=== PATIENT | female | born 1950 | race Caucasian/White ===

== ENCOUNTER 2021-05-21 03:14 | Emergency (ER) | payer MEDICARE ==
[~2021-05-21] VITALS: Ht 152.4 cm; Wt 35.1 kg
--- NOTE | 2021-05-21 03:29 | PHYS DOC ---
Adult General HPI HPI Patient is a 71-year-old female with a past medical history significant for lung cancer, and COPD on immunotherapy who presents to the emergency department with a chief complaint of shortness of breath that started acutely at about 10 PM last night. States she has had bouts with shortness of breath over the last yea r but it got really bad last night. States she is doing immunotherapy at [facility]. Denies any recent travel, traumas, illnesses, fevers, abdominal pain, nausea, vomiting, diarrhea, dysuria, hematuria, blood in the stool. Review of Systems Review of Systems Review of systems otherwise unremarkable except noted in HPI Physical Exam Physical Exam Constitutional: Well developed, well nourished, appears ill, in acute respiratory distress HENT: Normocephalic, atraumatic, bilateral external ears normal, oropharynx mois t, no oral exudates, nose normal. [] Eyes: conjunctiva normal, no discharge. [] Neck: Normal range of motion, no tenderness, supple, no stridor. [] Cardiovascular: Sinus tachycardia Lungs & Thorax: Bilateral breath sounds with global scattered rhonchi, increased work of breathing, tachypnea, hypoxia on room air Abdomen: soft, no tenderness, no masses, no pulsatile masses. [] Skin: Warm, dry, no erythema, no rash. [] Extremities: No tenderness, ROM intact, no edema. [] Neurologic: Alert and oriented X 3, no focal deficits noted. [] Psychologic: Affect normal, mood normal. [] EKG EKG EKG with a rate of 133, irregular rhythm, QRS of 74, QTc of 445, no STEMI [] Radiology/Procedures Radiology/Procedures [] Heart Score C/O Chest Pain: No Risk Factors: Risk Factors: DM, Current or recent (<one month) smoker, HTN, HLP, family hi story of CAD, obesity. Risk Scores: Risk Factors: DM, Current or recent (<one month) smoker, HTN, HLP, family history of CAD, obesity. Course & Med Decision Making Course & Med Decision Making Patient is a 71-year-old female who presents with acute onset shortness of breath and respiratory distress Vital signs notable for tachycardia, tachypnea, hypoxia on room air and increased work of breathing. Physical exam noted above. EKG with no STEMI. Patient placed on monitor with IV access established. Placed on BiPAP. IV fluid resuscitation begun. Blood cultures obtained. Started on broad-spectrum antibiotics given sirs criteria high likelihood of infection. Laboratory analysis notable for leukocytosis and mildly elevated troponin. Troponin most likely secondary to demand ischemia with no STEMI on EKG. I have a suspicion that given patient's respiratory status she may have a PE but patient is allergic to contrast. Given 40 of Lovenox. Discussed all findings with patient recommended admission for continued evaluation and treatment of her hypoxic respiratory distress. Patient stated that she requested to go to [place] by EMS but they would not take her and if she is going to be admitted that is where she would like to go. I have a call out to [facility] who put her on the list for a bed. Dragon Disclaimer Dragon Disclaimer This electronic medical record was generated, in whole or in part, using a voice recognition dictation system. Departure Departure: Impression: Primary Impression: Respiratory distress Additional Impressions: Hypoxia COPD exacerbation Disposition: 02 [facility] Condition: STABLE Problem Qualifiers REBECA SINGH MD May 21, 2021 03:29
[2021-05-21] MEDS ORDERED: CONTRAST GIVEN. MC PRN (03:45)
[2021-05-21] MEDS ORDERED: IPRATRPIUM/ALBUTEROL 0.5/2.5MG 3 ML NEBU. NEB ONE ×2 (04:00→10:00)
[2021-05-21] MEDS ORDERED: IOHEXOL 350 MG/ML 100 ML VIAL. IV ONE (04:00)
[2021-05-21] MEDS ORDERED: DEXAMETHASONE SOD PHOS 10 MG/ML VIAL. IV ONE (04:00)
[2021-05-21] MEDS ORDERED: IV RINGERS SOLUTION,LACTATED 1,000 ML IV ONE (04:00)
[2021-05-21 04:35] LABS: BASO # 0.1 x10^3/uL (0.0-0.2); BASO % 1 % (0-3); EOS # 0.9 x10^3/uL (0.0-0.7); EOS % 5 % (0-3); HEMATOCRIT 40.3 % (36.0-47.0); LYMPH # 0.8 x10^3/uL (1.0-4.8); LYMPH % 5 % (24-48); MEAN CORPUSCULAR HEMOGLOBIN 29 pg (25-35); MEAN CORPUSCULAR HGB CONC 32 g/dL (31-37); MEAN CORPUSCULAR VOLUME 91 fL (79-100); MONO # 0.6 x10^3/uL (0.0-1.1); MONO % 4 % (0-9); NEUT % 86 % (31-73); PLATELET COUNT 328 x10^3/uL (140-400); RED BLOOD COUNT 4.42 x10^6/uL (3.50-5.40); RED CELL DISTRIBUTION WIDTH 15.7 % (11.5-14.5); WHITE BLOOD COUNT 17.4 x10^3/uL (4.0-11.0)
[2021-05-21 04:41] LABS: CALCIUM 8.9 mg/dL (8.5-10.1); CREATININE 1.2 mg/dL (0.6-1.0); GFR 44.2; POTASSIUM 5.1 mmol/L (3.5-5.1)
--- NOTE | 2021-05-21 04:47 | RAD ---
CT of the chest without contrast: Clinical History: Reason: SOB, hypoxia, lung cancer / Spl. Instructions: / History: . Axial helical images of the chest were obtained without contrast. The lungs are hyperinflated. There is diffuse emphysematous changes. There is patchy opacities in the apices of the lungs. There is no mediastinal or hilar lymphadenopathy. There is bilateral adrenal masses measuring 2.4 x 4.0 cm on the left and 2.6 x 1.9 cm on the right. There is a small cyst in the liver. Impression: 1. Hyperinflation and diffuse emphysematous changes in lungs. 2. Subpleural changes in apices the lungs bilaterally is nonspecific and can be scar. Neoplasm is pos sible and a three-month follow-up CT chest without contrast. TB should be excluded with additional te sting. 3. Bilateral adrenal masses likely adrenal adenoma. Recommend follow-up MRI of the talus as an outpat ient. PQRS Compliance Statement: One or more of the following individualized dose reduction techniques were utilized for this examinat ion: 1. Automated exposure control 2. Adjustment of the mA and/or kV according to patient size 3. Use of iterative reconstruction technique Electronically signed by: Sj Diaz III, MD (05/21/2021 4:44 AM) [facility]
[2021-05-21 04:54] LABS: ALBUMIN 3.4 g/dL (3.4-5.0); ALBUMIN/GLOBULIN RATIO 1.1 (1.0-1.7); MAGNESIUM 2.2 mg/dL (1.8-2.4); TOTAL BILIRUBIN 0.3 mg/dL (0.2-1.0); TOTAL PROTEIN 6.5 g/dL (6.4-8.2)
[2021-05-21 05:31] LABS: % BANDS 6 % (0-9); % EOS 8 % (0-5); % LYMPHS 4 % (24-48); % MONOS 3 % (0-10); % SEGS 79 % (35-66); PLT ESTIMATE ADEQUATE (ADEQUATE)
[2021-05-21 05:33] LABS: INFLUENZA A PATIENT NEGATIVE (NEGATIVE); INFLUENZA B PATIENT NEGATIVE (NEGATIVE)
[2021-05-21] MEDS ORDERED: IV NORMAL SALINE 50ML 50 ML ONE (05:53)
[2021-05-21] MEDS ORDERED: cefTRIAXone SODIUM 1 GM VIAL ONE (05:53)
[2021-05-21] MEDS ORDERED: AZITHROMYCIN 250 MG TABLET. PO ONE (06:00)
[2021-05-21] MEDS ORDERED: ENOXAPARIN 40 MG/0.4 ML SYRINGE. SQ ONE (06:00)
--- NOTE | 2021-05-21 06:23 | EKG ---
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
[2021-05-21] MEDS ORDERED: LOPERAMIDE 2 MG CAPSULE PO ONE (08:00)
[2021-05-21] MEDS ORDERED: TRAZ-120 PO (08:58)
[2021-05-21] MEDS ORDERED: DEXA4TAB PO (09:00)
[2021-05-21] MEDS ORDERED: PROC10TA2 PO (09:02)
[2021-05-21] MEDS ORDERED: LOPE2TAB27 PO (09:03)
[2021-05-21] MEDS ORDERED: ONDA4TAB7 PO (09:04)
[2021-05-21] MEDS ORDERED: ONDANSETRON PF 4 MG/2 ML VIAL. IVP ONE (09:15)
[2021-05-21] MEDS ORDERED: BUDESONIDE 0.5 MG/2 ML NEBU ONE (10:00)
[2021-05-21] MEDS ORDERED: BUDESONIDE 0.5 MG/2 ML NEBU NEB ONE ×2 (10:00→14:45)
[2021-05-21] MEDS ORDERED: ALBUTEROL SULFATE 2.5 MG/3 ML NEBU. NEB ONE (14:45)
[2021-05-21] MEDS ORDERED: SUCCINYLCHOLINE 200 MG/10 ML VIAL. ONE (17:11)
[2021-05-21] MEDS ORDERED: HALOPERIDOL LACT 5 MG/ML VIAL. IVP ONE (17:45)
[2021-05-21 18:15] VITALS: BP 118/78
[2021-05-21 18:39] LABS: BGAS PH 7.33 (7.35-7.45)
== END 2021-05-21 18:58 | disposition short-term general hospital (02) ==
LOC: ER 03:14
DX: J44.1 Chronic obstructive pulmonary disease with (acute) exacerbation (principal); R09.02 Hypoxemia; Z20.822 Contact with and (suspected) exposure to COVID-19
CPT/HCPCS: 36415; 36600; 71250; 80053; 82803; 83605; 83735; 84484; 85007; 85025; 85379; 85610; 85730; 87040; 87426; 87804; 93005; 94640; 94660; 96361; 96365; 96375; 96376; 99285; J0696; J1100; J1630; J1650; J2060; J2405; J7120; J7613; U0003